=== PATIENT | male | born 1965 | race Caucasian/White ===

== ENCOUNTER 2024-01-15 00:44 | Observation (INO) ==
[2024-01-15 01:43] LABS: ABS Basophils 0.1 10^3/uL (0.0-0.1); ABS Eosinophils 0.4 10^3/uL (0.0-0.5); ABS Lymphocytes 2.3 10^3/uL (1.0-4.8); ABS Neutrophils 5.8 10^3/uL (1.5-7.6); Eosinophil % 4.4 %; Hemoglobin 11.4 g/dL (13.2-16.3); Lymphocyte % 23.7 %; Mean Corpuscular Hemoglobin 29.9 pg (27-33); Mean Corpuscular Hgb Conc 32.5 g/dL (31-36); Mean Corpuscular Volume 91.8 fL (80-97); Mean Platelet Volume 8.5 fL (7.5-11.2); Platelet Count 259 10^3/uL (150-450); Red Blood Count 3.81 10^6/uL (4.06-5.63); Red Cell Distribution Width 13.8 % (12-17); White Blood Count 9.7 10^3/uL (3.6-10.2)
[2024-01-15 02:34] LABS: ALT 19 U/L (7-52); Albumin 4.2 g/dL (3.2-5.2); Albumin/Globulin Ratio 1.5 (1-3); Alkaline Phosphatase 66 U/L (35-149); Anion Gap 12 mmol/L (2-16); Blood Urea Nitrogen 50 mg/dL (6-24); CO2 Carbon Dioxide 22 mmol/L (22-32); Calcium 9.4 mg/dL (8.6-10.3); Chloride 104 mmol/L (101-111); Creatinine, Serum 2.32 mg/dL (0.67-1.17); Globulin 2.8 g/dL (2-4); Glucose 88 mg/dL (70-100); Magnesium 1.7 mg/dL (1.9-2.7); Sodium 138 mmol/L (135-145); Total Bilirubin 0.3 mg/dL (0.2-1.0); eGFR CKD-EPI 31.4 (>60)
[2024-01-15 03:59] LABS: Potassium Redraw 6.3 mmol/L (3.5-5.0)
[2024-01-15] MEDS: SODIUM ZIRCONIUM CYCLOSILICATE 10 GM PACKET PO ONE (05:25)
[2024-01-15] MEDS: Magnesium Sulf 4 GM/100 ML IV 4,000 MG/100 ML BAG IVPB ONE (05:25)
[2024-01-15 08:04] LABS: Urine Appearance Clear; Urine Bilirubin Negative (Negative); Urine Blood Negative (Negative); Urine Color Light-Yellow; Urine Glucose Negative (Negative); Urine Ketones Negative (Negative); Urine Nitrite Negative (Negative); Urine Protein Negative (Negative); Urine Specific Gravity 1.017 (1.002-1.030); Urine Urobilinogen Negative (Negative); Urine pH 5.5 (5.0-8.0)
[2024-01-15 08:21] LABS: Urine Creatinine Concentration 97.89 mg/dL (20.00-370.00)
[2024-01-15 08:41] LABS: Creatinine, Serum 1.99 mg/dL (0.67-1.17); Potassium 5.6 mmol/L (3.5-5.0); eGFR CKD-EPI 37.7 (>60)
[2024-01-15] MEDS: Enoxaparin 40 MG/0.4 ML SYR SUBCUT SCH (09:54)
[2024-01-15] MEDS: NS 0.9% 1000 ml BAG 1,000 ML IV ONE (10:03)
[2024-01-15] MEDS: SODIUM ZIRCONIUM CYCLOSILICATE 5 GM PACKET PO SCH ×2 (11:18→21:48)
[2024-01-15 14:55] LABS: Calcium 9.4 mg/dL (8.6-10.3); Creatinine, Serum 1.73 mg/dL (0.67-1.17); Magnesium 2.3 mg/dL (1.9-2.7); Potassium 5.9 mmol/L (3.5-5.0); eGFR CKD-EPI 44.6 (>60)
[2024-01-15] MEDS: Dextrose 50% Syringe 50 ml 25 GM/50 ML SYRINGE IV PUSH ONE ×2 (16:55→22:07)
[2024-01-15] MEDS: Sodium Polystyrene ORAL.SUSP 15 GM/60 ML BTL PO ONE (16:55)
[2024-01-15] MEDS: NS 0.9% 1000 ml BAG 1,000 ML IV SCH (17:00)
[2024-01-15 21:13] LABS: Creatinine, Serum 1.67 mg/dL (0.67-1.17); Potassium 6.1 mmol/L (3.5-5.0); eGFR CKD-EPI 46.6 (>60)
[2024-01-16 02:24] LABS: Potassium 5.5 mmol/L (3.5-5.0)
[2024-01-16 02:25] LABS: Calcium 9.2 mg/dL (8.6-10.3); Creatinine, Serum 1.61 mg/dL (0.67-1.17); eGFR CKD-EPI 48.7 (>60)
[2024-01-16 05:40] LABS: ABS Basophils 0.1 10^3/uL (0.0-0.1); ABS Eosinophils 0.5 10^3/uL (0.0-0.5); ABS Lymphocytes 2.1 10^3/uL (1.0-4.8); ABS Monocytes 0.8 10^3/uL (0.0-1.1); ABS Neutrophils 5.3 10^3/uL (1.5-7.6); Hematocrit 31.7 % (38-53); Hemoglobin 10.6 g/dL (13.2-16.3); Mean Corpuscular Hemoglobin 30.8 pg (27-33); Mean Corpuscular Hgb Conc 33.5 g/dL (31-36); Mean Platelet Volume 8.1 fL (7.5-11.2); Platelet Count 217 10^3/uL (150-450); Red Blood Count 3.45 10^6/uL (4.06-5.63); Red Cell Distribution Width 13.9 % (12-17); White Blood Count 8.9 10^3/uL (3.6-10.2)
[2024-01-16 06:19] LABS: Calcium 8.8 mg/dL (8.6-10.3); Creatinine, Serum 1.48 mg/dL (0.67-1.17); Potassium 5.5 mmol/L (3.5-5.0); eGFR CKD-EPI 53.8 (>60)
[2024-01-16] MEDS: Acetaminophen IV 1 GM/100ML 1,000 MG/100 ML BAG IV ONE (08:39)
[2024-01-16] MEDS: SODIUM ZIRCONIUM CYCLOSILICATE 10 GM PACKET PO SCH (08:42)
[2024-01-16] MEDS: Furosemide 20 mg/2 ml IV VIAL IV SLOW PU ONE (08:43)
[2024-01-16 09:05] VITALS: BP 135/74
[2024-01-16] MEDS: Sodium Polystyrene ORAL.SUSP 15 GM/60 ML BTL PO ONE (09:05)
[2024-01-16 11:48] LABS: Calcium 9.2 mg/dL (8.6-10.3); Creatinine, Serum 1.44 mg/dL (0.67-1.17); Potassium 5.2 mmol/L (3.5-5.0); eGFR CKD-EPI 55.6 (>60)
== END 2024-01-16 12:43 | disposition home or self-care (01) ==
LOC: ED 00:44 → EDHOLD 00:44 → SUATTDRO 04:32 → MEDTELE 01-16 09:31
PROVIDERS: ADMIT Internal Medicine; ATTEND Internal Medicine